=== PATIENT | male | born 1960 | race Caucasian/White ===

== ENCOUNTER 2021-05-06 20:24 | Emergency (ER) | payer OTHER, SELFPAY ==
[2021-05-06 20:26] VITALS: BP 156/107; PULSE 16; RESP 97; TEMP 36.7; O2SAT 77; BMI 39.0
--- NOTE | 2021-05-06 20:40 | EKG12_ITS ---
Test Reason : DYSRHYTHMIA Blood Pressure : / mmHG Vent. Rate : 077 BPM Atrial Rate : 077 BPM P-R Int : 186 ms QRS Dur : 096 ms QT Int : 408 ms P-R-T Axes : 023 -02 060 degrees QTc Int : 461 ms Normal sinus rhythm Minimal voltage criteria for LVH, may be normal variant Borderline ECG Confirmed by VI ORELLANA, JOSE ANTONIO ([id number]), editor in chief BRINDA MUNOZ ([id number]) on 05/10/2021 9:47:51 AM Referred By: JESSICA Confirmed By:JUDITH LEBRON MD
[2021-05-06 20:41] VITALS: O2SAT 95
[2021-05-06 20:52] LABS: Absolute Neutrophil Count 6.1 X10^3/uL (2.0-7.7); Basophil# 0.03 X10^3/uL; Basophil% 0.4 % (0-1); Eosinophil# 0.16 X10^3/uL; Hemoglobin 14.9 g/dL (13.0-16.5); Lymphocyte % 13.5 % (19-41); Mean Corp Hgb Conc 33.9 g/dL (32-36); Mean Corpuscular Hgb 29.4 pg (27.0-32.0); Mean Platelet Vol. 10.7 fl (6.2-12.0); Monocyte# 0.72 X10^3/uL; Monocyte% 8.9 % (0-10); NRBC Flagged by Analyzer 0 % (0-5); Neutrophil # 6.08 X10^3/uL (2.7-7.7); Neutrophil % 74.7 % (47-70); Platelet Count 143 K/mm3 (150-450); RBC Distribution Width CV 13.3 % (11.6-14.6); RBC Distribution Width SD 41.8 fl (35.1-43.9); Red Blood Count 5.06 M/mm3 (4.6-6.2); White Blood Count 8.1 K/mm3 (4.4-11.0)
--- NOTE | 2021-05-06 21:03 | RAD_ITS ---
STUDY: X-RAY CHEST REASON FOR EXAM: Male, 61 years old. chest pain TECHNIQUE: Single AP portable view of the chest. COMPARISON: None. FINDINGS: The lungs are clear and expanded. There is no demonstrated pleural abnormality. Normal size heart. Normal mediastinum and lyssa. Normal visualized pulmonary arteries. Normal visualized aortic arch and descending thoracic aorta. Normal visualized thoracic spine. Normal visualized ribs, clavicles, and shoulders. There is no demonstrated abnormality of the visualized soft tissue structures of the upper abdomen. RAD/Chest 1 View (Portable) IMPRESSION: Normal x-ray examination of the chest. Electronically Signed: Ck Weeks MD at 21:19 EDT , Service support ,
[2021-05-06 21:12] LABS: Anion Gap 7 (5-15); BUN 20 mg/dL (7-18); BUN/Creat Ratio 17.2 RATIO (10-20); Calcium,Total 9.4 mg/dL (8.5-10.1); Chloride 106 mmol/L (98-107); Creatinine, Serum 1.16 mg/dL (0.70-1.30); EST Glomerular Filtration Rate 68 mL/min (>60); Est Glom Filt Rate - Afr Amer 82 mL/min (>60); Estimated Creatinine Clearance 65.18 ml/min; Glucose 89 mg/dL (74-106); Potassium 3.8 mmol/L (3.5-5.1); Sodium Level 140 mmol/L (136-145); Troponin-I HS 11.4 pg/mL (3.0-78.5)
[2021-05-06 21:58] VITALS: BP 127/72; PULSE 90; RESP 23; O2SAT 91
--- NOTE | 2021-05-06 22:05 | EDS_ITS ---
HPI History of Present Illness Chief Complaint: Allergic Reaction Detail of Chief Complaint: Possible insect bites and bilateral groin pain Informant: patient, spouse/S.O. and family Onset/Context/Timing Onset: Today Context: Sudden Onset Timing: Continuous Quality: Insect bites and pain in his groin Location: Right and left upper quadrant, left arm and groin bilateral Worsened by: Movement especially walking with regards to the groin pain Relieved by: Remaining still Associated Symptoms Associated Symptoms: Does not feel well Narrative Narrative: Patient is a 61-year-old male who has history of hypertension and hypercholesterolemia who presents with insect bites that he believes may be infected. He denies allergic type symptoms. He denies fever or chills. States he does not feel well and achy. He states he then developed right groin pain followed by left groin pain. He is status post herniorrhaphy. He denies dysuria, frequency, urgency or hematuria. He denies testicular pain. Movement exacerbates his groin pain. He does complain of dry mouth and thirst. He was out in the monkey heat all day. He denies headache, rhinorrhea, postnasal drainage or sore throat. He denies ear pain or ringing in his ears. Denies neck pain. He denies cough or shortness of breath. He denies abdominal pain. Prior similar symptoms: No Recent Illness/Hospitalization: No [facility] Medical History (Updated 05/07/21 @ 00:[address] Akshat Jackson MD) Hyperlipemia Hypertension Home Medications atorvastatin 40 mg PO DAILY 05/06/21 [History Last Taken Unknown] losartan 25 mg PO DAILY 05/06/21 [History Last Taken Unknown] metoprolol succinate 12.5 mg PO DAILY 05/06/21 [History Last Taken Unknown] doxycycline monohydrate 100 mg PO BID #14 capsule 05/07/21 [Rx Last Taken Unknown] hydrocodone-acetaminophen 1 tab PO Q6H PRN PRN 3 Days #10 tablet 05/07/21 [Rx Last Taken Unknown] Allergy/AdvReac Type Severity Reaction Status Date / Time No Known Allergies Allergy Verified 05/06/21 20:36 Surgical History (Updated 05/06/21 @ 22:[address] Akshat Jackson MD) History of total knee arthroplasty Hx of appendectomy Hx of inguinal herniorrhaphy Social History (Updated 05/06/21 @ 22:[address] Akshat Jackson MD) household members: spouse Smoking Status: Never smoker alcohol intake: current alcohol intake frequency: holidays/special occasions only substance use type: does not use ROS ROS ED Constitutional Constitutional ED: Denies chills, fever(s), subjective or sweats Eyes Eyes: Denies blurry vision or change in vision ENT ENT ED: Denies ear pain, rhinorrhea or sore throat Cardiovascular Cardiovascular: Denies chest pain, palpitations or racing heartbeat Respiratory/Chest Respiratory/Chest: Denies cough, dyspnea or dyspnea on exertion Gastrointestinal Gastrointestinal: Reports nausea; Denies abdominal pain, constipation, diarrhea or vomiting Genitourinary Genitourinary ED: Denies dysuria, hematuria or urinary frequency Musculoskeletal Musculoskeletal: Reports myalgias; Denies arthralgias, back pain or neck pain Integumentary Reports rash and other Details: Insect bite right and left upper quadrant that have eschar without erythema or warmth. The mosquito bite involving the left arm is cellulitic with a diameter of 5 cm. Neurologic Neurologic: Denies headache(s) or paresthesias Allergic/Immunologic Allergic/Immunologic ED: Denies mouth swelling, tongue swelling or urticaria EXAM Physical Exam Const Vital Signs: 05/06/21 20:26 05/06/21 20:41 05/06/21 21:58 Temperature 98.1 F Temperature Source Oral Pulse Rate 16 L 90 Respiratory Rate 97 H 23 H Blood Pressure 156/107 H 127/72 H Blood Pressure Mean 123 90 Pulse Ox 77 95 91 Oxygen Delivery Method Room Air Room Air Room Air 05/06/21 22:33 05/07/21 00:07 Temperature 98.1 F Temperature Source Oral Pulse Rate 91 87 Respiratory Rate 12 20 H Blood Pressure 128/82 H 122/63 H Blood Pressure Mean 97 82 Pulse Ox 96 91 Oxygen Delivery Method Positive well nourished, well developed and obese General Appearance ED: well developed Nutritional Appearance: obese HEENT Reports TM's clear and dry mucous membranes HEENT Narrative: Face is symmetric. Nares patent. Uvula is midline. There is no evidence of angioedema. Ears appear normal. Tympanic Membrane ED: Yes TM's clear Mouth ED: Yes dry mucous membranes Mouth: dry mucous membranes Eyes PERRL and EOMs intact bilaterally General Eye ED: Negative for pale conjunctiva or scleral icterus Neck no lymphadenopathy, supple and no JVD Chest Wall inspection of chest normal Resp normal respiratory effort and clear to auscultation bilaterally Cardio regular rate, S1 normal heart sound and S2 normal heart sound Rate: other Other Details: Monitor reveals trigeminy GI non-tender and non-distended Palpation: soft Rectal Exam: other Other Details: Mosquito bite right and left upper quadrant Back/Spine no CVA tenderness Cervical Spine: Negative for cervical spine tenderness Thoracic Spine / Upper Back: Negative for thoracic spinal tenderness Extremity normal to inspection Extremity Narrative: There is no discomfort with logrolling of the right or left lower extremity. There is pain in the inguinal area. There is no palpable deformity to suggest hernia. Movement i.e. flexion of the hip causes pain bilaterally. DP and PT pulse are palpable bilaterally and 2+. He has scars noted right and left knee secondary to total knee arthroplasty. General Extremety ED: Negative for tenderness Neuro oriented x3, CN's II-XII intact bilaterally and no sensory deficits noted Sensorium / Orientation: alert Motor Exam: strength 5/5 throughout Psych mental status grossly normal Skin Skin Narrative: Previously described Wounds: wounds noted MDM MDM MDM Narrative Medical decision making narrative: There is evidence of cellulitis left arm. Blood work was obtained. Clinically he appears dehydrated. IV fluids was ordered. informed me that he apparently kicked the toe motor because of his a problem with the wheel. He did kick the toe motor using his right lower extremity. He did a lot of heavy lifting as well. Lab Data Attestation: I reviewed the patient's lab results. Lab results narrative: Patient's blood work indicates an elevated creatinine however his GFR is greater than 60. Urine specific gravity is elevated at 1.025. Chest x-ray was obtained per protocol and agree it is normal. A single view was obtained. Labs: Laboratory Results - last 24 hr 05/06/21 05/06/21 05/06/21 20:10 20:10 22:04 WBC 8.1 Cancelled Corrected WBC Cancelled RBC 5.06 Cancelled Hgb 14.9 Cancelled Hct 44.0 Cancelled MCV 87.0 Cancelled MCH 29.4 Cancelled MCHC 33.9 Cancelled RDW Std Deviation 41.8 Cancelled RDW Coeff of Chantale 13.3 Cancelled Plt Count 143 L Cancelled MPV 10.7 Cancelled Immature Gran % (Auto) 0.500 Cancelled Neut % (Auto) 74.7 H Cancelled Lymph % (Auto) 13.5 L Cancelled Lamb % (Auto) 8.9 Cancelled Eos % (Auto) 2.0 Cancelled Baso % (Auto) 0.4 Cancelled Absolute Neuts (auto) 6.1 Cancelled Absolute Lymphs (auto) 1.10 Cancelled Total Counted Cancelled Neutrophils % (Manual) Cancelled Band Neutrophils % Cancelled Lymphocytes % (Manual) Cancelled Monocytes % (Manual) Cancelled Eosinophils % (Manual) Cancelled Basophils % (Manual) Cancelled Metamyelocytes % Cancelled Myelocytes % Cancelled Promyelocytes % Cancelled Blast Cells % Cancelled Plasma Cell % (Manual) Cancelled Other Cells % Cancelled Nucleated RBC % 0 Cancelled Nucleated RBCs/100 WBC Cancelled Differential Comment Cancelled Diff Path Review Cancelled Hypersegmented Neuts Cancelled Atypical Lymphocytes Cancelled Reactive Lymphocytes Cancelled Smudge Cells Cancelled Toxic Granulation Cancelled Toxic Vacuolation Cancelled Dohle Bodies Cancelled [place]s Cancelled Platelet Estimate Cancelled Plt Morphology Comment Cancelled RBC Morphology Cancelled Polychromasia Cancelled Hypochromasia Cancelled Poikilocytosis Cancelled Basophilic Stippling Cancelled Anisocytosis Cancelled Microcytosis Cancelled Macrocytosis Cancelled Spherocytes Cancelled Sickle Cells Cancelled Target Cells Cancelled Tear Drop Cells Cancelled Ovalocytes Cancelled Stomatocytes Cancelled [place] Bodies Cancelled [place] Cells Cancelled Bite Cells Cancelled Crenated Cell Cancelled Acanthocytes (Spur) Cancelled Rouleaux Cancelled Schistocytes Cancelled Sodium 140 Potassium 3.8 Chloride 106 Carbon Dioxide 27.0 Anion Gap 7 BUN 20 H Creatinine 1.16 Estim Creat Clear Calc 65.18 Est GFR (MDRD) Af Amer 82 Est GFR (MDRD) Non-Af 68 BUN/Creatinine Ratio 17.2 Glucose 89 Lactic Acid Calcium 9.4 Troponin I High Sens 11.4 Urine Color Urine Clarity Urine pH Ur Specific Raymond Urine Protein Urine Glucose (UA) Urine Ketones Urine Occult Blood Urine Nitrite Urine Bilirubin Urine Urobilinogen Ur Leukocyte Esterase 05/06/21 05/06/21 05/06/21 22:04 22:15 22:30 WBC Corrected WBC RBC Hgb Hct MCV MCH MCHC RDW Std Deviation RDW Coeff of [place] Plt Count MPV Immature Gran % (Auto) Neut % (Auto) Lymph % (Auto) Lamb % (Auto) Eos % (Auto) Baso % (Auto) Absolute Neuts (auto) Absolute Lymphs (auto) Total Counted Neutrophils % (Manual) Band Neutrophils % Lymphocytes % (Manual) Monocytes % (Manual) Eosinophils % (Manual) Basophils % (Manual) Metamyelocytes % Myelocytes % Promyelocytes % Blast Cells % Plasma Cell % (Manual) Other Cells % Nucleated RBC % Nucleated RBCs/100 WBC Differential Comment Diff Path Review Hypersegmented Neuts Atypical Lymphocytes Reactive Lymphocytes Smudge Cells Toxic Granulation Toxic Vacuolation Dohle Bodies [place]s Platelet Estimate Plt Morphology Comment RBC Morphology Polychromasia Hypochromasia Poikilocytosis Basophilic Stippling Anisocytosis Microcytosis Macrocytosis Spherocytes Sickle Cells Target Cells Tear Drop Cells Ovalocytes Stomatocytes [place] Bodies [place] Cells Bite Cells Crenated Cell Acanthocytes (Spur) Rouleaux Schistocytes Sodium Cancelled Potassium Cancelled Chloride Cancelled Carbon Dioxide Cancelled Anion Gap Cancelled BUN Cancelled Creatinine Cancelled Estim Creat Clear Calc Cancelled Est GFR (MDRD) Af Amer Cancelled Est GFR (MDRD) Non-Af Cancelled BUN/Creatinine Ratio Cancelled Glucose Cancelled Lactic Acid 1.1 Calcium Cancelled Troponin I High Sens Urine Color YELLOW Urine Clarity Clear Urine pH 5.0 Ur Specific Raymond 1.025 Urine Protein 15 H Urine Glucose (UA) Normal Urine Ketones 5 H Urine Occult Blood 25 H Urine Nitrite Negative Urine Bilirubin Negative Urine Urobilinogen 1 H Ur Leukocyte Esterase Negative Radiography Diagnostic Testing: Radiology Impression Chest X-Ray 05/06/21 21:03 IMPRESSION: Normal x-ray examination of the chest. Electronically Signed: Ck Weeks MD at 21:19 EDT , Service support , EKG Initial EKG: Attestation: I personally reviewed and interpreted this EKG as follows: Interpretation: Sinus Rhythm (Sinus rhythm with a ventricular rate of 77. OR interval is 186 ms. QS duration 96 ms. QT duration 408 ms. [place] is normal. Computer is reading minimal criteria for LVH by voltage criteria.) Treatment and Re-Evaluation Comments:: Patient and family was informed of his results and plan. Discharge Plan Triage Chief Complaint: Allergic Reaction ED Provider: Akshat Jackson Dx/Rx/DC Orders Clinical Impression: Cellulitis of arm, left, Acute dehydration, Strain of left groin, Strain of right groin Instructions: ED Cellulitis, ED Dehydration (Adult), ED Groin Strain Prescriptions: New doxycycline monohydrate 100 MG capsule 100 mg PO BID Qty: 14 RF: 0 hydrocodone-acetaminophen [hydrocodone-acetaminophen] 1 TABLET tablet 1 tab PO Q6H PRN PRN (Reason: Pain) 3 Days Qty: 10 RF: 0 No Action atorvastatin 40 mg Tablet 40 mg PO DAILY RF: 0 losartan 25 mg Tablet 25 mg PO DAILY RF: 0 metoprolol succinate 25 mg Capsule,Sprinkle,Er 24hr 12.5 mg PO DAILY RF: 0 Primary Care Provider: Marisa Johns Referrals: Marisa Johns MD [Primary Care Provider] - 3-5 Days Disposition Disposition: Home, Self Care
[2021-05-06] MEDS: 0.9% Normal Saline 1,000 ML 1000 ML IV (22:18)
[2021-05-06 22:33] VITALS: BP 128/82; PULSE 91; RESP 12; TEMP 36.7; O2SAT 96
[2021-05-06 22:52] LABS: Glucose, Dipstick Normal (Normal); Ketone-Dipstick 5 mg/dl (Negative); Leukocyte Esterase-Dipstick Negative /ul (Negative); Nitrite-Dipstick Negative (Negative); Occult Blood-Urine 25 /ul (Negative); Protein-Dipstick 15 mg/dl (Negative); Specific Gravity, Urine 1.025 (1.002-1.030); Urine Bilirubin Dipstick Negative (Negative); Urine Urobilinogen 1 mg/dl (Normal)
[2021-05-06 22:54] LABS: Color, Urine YELLOW (Yellow); Urine Clarity Clear (Clear)
[2021-05-06 22:54] LABS: Lactic Acid 1.1 mmol/L (0.4-1.9)
[2021-05-07 00:07] VITALS: BP 122/63; PULSE 87; RESP 20; O2SAT 91
[2021-05-07] MEDS: Doxycycline 100 MG CAPSULE PO (00:52)
[2021-05-07] MEDS: HYDROcodone Bitartrate/Apap 5/325 Tablet PO (00:52)
[2021-05-07 00:53] VITALS: BP 129/70; PULSE 90; RESP 16; O2SAT 97
== END 2021-05-07 00:58 | disposition home or self-care (01) ==
PROVIDERS: Emergency Provider Emergency Medicine; PCP Internal Medicine
DX: L03.114 Cellulitis of left upper limb (principal); E86.0 Dehydration; S39.011A Strain of muscle, fascia and tendon of abdomen, initial encounter; E66.9 Obesity, unspecified; E78.00 Pure hypercholesterolemia, unspecified; E78.5 Hyperlipidemia, unspecified; I10 Essential (primary) hypertension; Z79.899 Other long term (current) drug therapy; X58.XXXA Exposure to other specified factors, initial encounter
CPT/HCPCS: 71045; 80048; 81002; 83605; 84484; 85025; 93005; 96360; 96361; 99285; J7030

== ENCOUNTER → 2022-09-20 | Outpatient (CLI) | payer OTHER, SELFPAY ==
--- NOTE | 2022-09-20 14:43 | ECHOD_ITS ---
Reason For Study: ARRYTHMIA Procedure This was a 2D Doppler, Color Flow transthoracic echocardiogram. The study was technically difficult. Exam performed in department. Left Ventricle The 2D echocardiographic images obtained there appears to be grossly normal left ventricular size, wall motion, and systolic function. The estimated ejection fraction is 55 %. Stage 2 diastolic dysfunction. Right Ventricle Normal RV size. Normal systolic function. Atria The left atrium is mildly enlarged. Normal right atrium. No doppler evidence for ASD. Mitral Valve There is no mitral annular calcification. Normal mitral valve. Mild (1+) mitral valve insufficiency. Tricuspid Valve Normal tricuspid valve. Trivial tricuspid valve insufficiency. Unable to estimate RV systolic pressure/pulmonary artery pressure due to technically difficult study. Aortic Valve Trisinus/trileaflet aortic valve. Normal aortic valve. Pulmonic Valve The pulmonic valve is not well visualized. Great Vessels The aortic root is not well visualized. Pericardium/Pleural No pericardial effusion. MMode/2D Measurements & Calculations LVIDd: 4.9 cm IVSd: 1.8 cm LAV(MOD-bp): 114.8 ml LVIDs: 3.3 cm LVPWd: 1.6 cm LAV(MOD-bp) Indexed: 62.0 ml/m2 RVDd: 3.9 cm FS: 32.7 % LAV(MOD-sp2): 120.7 ml LAV(MOD-sp4): 94.9 ml SV(MOD-sp4): 120.5 ml SV(sp4-el): 132.0 ml LVAd ap4: 48.9 cm2 LVLd ap4: 9.4 cm EDV(MOD-sp4): 204.5 ml EDV(sp4-el): 215.7 ml LVAs ap4: 28.0 cm2 LVLs ap4: 7.9 cm ESV(MOD-sp4): 84.0 ml ESV(sp4-el): 83.7 ml EF(MOD-sp4): 58.9 % EF(sp4-el): 61.2 % LA A4 area: 29.6 cm2 LA dimension(2D): 4.5 cm RA A4 area: 24.2 cm2 Time Measurements MV dec time: 0.18 sec Doppler Measurements & Calculations MV E max les: 67.8 cm/sec Lat Peak E' Les: 9.7 cm/sec Med Peak E' Les: 4.6 cm/sec MV A max les: 81.5 cm/sec E/E' lat: 7.0 E/E' med: 14.8 MV E/A: 0.83 MV V2 max: 87.9 cm/sec MV dec slope: 381.0 cm/sec2 Ao V2 max: 170.9 cm/sec MV max P.1 mmHg Ao max P.9 mmHg MV V2 mean: 42.2 cm/sec Ao V2 mean: 124.2 cm/sec MV mean P.91 mmHg Ao mean P.0 mmHg MV V2 VTI: 40.1 cm Ao V2 VTI: 37.2 cm AV (velocity ratio): 0.50 LV V1 max: 78.9 cm/sec PA V2 max: 113.8 cm/sec LV V1 max P.6 mmHg PA V2 mean: 75.8 cm/sec LV V1 mean P.4 mmHg LV V1 mean: 54.8 cm/sec LV V1 VTI: 18.6 cm ECHO/Echo Complete Interpretation Summary The study was technically difficult. The 2D echocardiographic images obtained there appears to be grossly normal lef t ventricular size, wall motion, and systolic function. The estimated ejection fraction is 55 %. The left atrium is mildly enlarged. Mild (1+) mitral valve insufficiency. Trivial tricuspid valve insufficiency. Unable to estimate RV systolic pressure/pulmonary artery pressure due to techni ish difficult study. Stage 2 diastolic dysfunction. Ordering Physician: Trung Garrett Referring Physician: Trung Garrett Performed By: Suri Maldonado RCS
== END | disposition home or self-care (01) ==
LOC: CVS 14:42
PROVIDERS: PCP Internal Medicine; Referring Provider Internal Medicine Cardiovascular Disease; Visit Provider Internal Medicine Cardiovascular Disease
DX: I49.9 Cardiac arrhythmia, unspecified (principal)
CPT/HCPCS: 93306